=== PATIENT | male | born 1970 | race Asian ===

== ENCOUNTER 2019-06-04 12:49 | Outpatient (CLI) | payer OTHER | END 2019-06-04 23:59 | disposition home or self-care (01) | LOC: RAD 12:49 | DX: Z11.1 Encounter for screening for respiratory tuberculosis (principal) | CPT/HCPCS: 71045 ==

== ENCOUNTER 2021-02-09 07:13 | Outpatient (CLI) | payer BC ==
[2021-02-09] VITALS (21 sets, daily range): BP systolic 103–118; BP diastolic 64–81
== END 2021-02-09 23:59 | disposition home or self-care (01) ==
LOC: CARD DIAG 07:13
PROVIDERS: ATTEND Internal Medicine Cardiovascular Disease
DX: R42 Dizziness and giddiness (principal)
CPT/HCPCS: 93660

== ENCOUNTER 2025-03-18 15:43 | Outpatient (CLI) | payer OTHER ==
--- NOTE | 2025-03-18 18:00 | RADIOLOGY REPORT ---
EXAM: DI CHEST,TWO VIEWS CLINICAL HISTORY: TB SCREENING COMPARISON: None TECHNIQUE: Frontal and lateral view of the chest was obtained FINDINGS: Lines and Tubes: None Lungs: No focal consolidation. Pleura: No effusion. No pneumothorax. Cardiomediastinal contours: Unremarkable Bones: No acute osseous abnormality. IMPRESSION: No acute cardiopulmonary disease.
== END 2025-03-18 23:59 | disposition home or self-care (01) ==
LOC: RAD 15:43
PROVIDERS: ATTEND Internal Medicine Infectious Disease
DX: Z11.1 Encounter for screening for respiratory tuberculosis (principal)
CPT/HCPCS: 71046